=== PATIENT | male | born 1990 | race Caucasian/White ===

== ENCOUNTER 2017-08-25 18:02 | Observation (INO) | payer SELFPAY ==
[~2017-08-25] VITALS: Ht 172.7 cm; Wt 70.8 kg
[2017-08-25] MEDS ORDERED: fentaNYL INJECTION 100 MCG/2 ML AMP IVP STA ×3 (18:12→19:34)
[2017-08-25] MEDS ORDERED: TETANUS,DIPTH,PERTUSS P/F (BOOSTRIX) 0.5 ML VIAL IM STA (18:12)
[2017-08-25] MEDS ORDERED: NS IV 1000 ML 1,000 ML IV ONE (18:12)
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
[2017-08-25] MEDS ORDERED: IOHEXOL 350 MG/ML 100 ML (OMNIPAQUE 350) VIAL IV ONE (19:15)
[2017-08-25] MEDS ORDERED: NS 100 ML (IVPB) BAG IV ONE (19:15)
[2017-08-25 19:37] LABS: BASOPHILS # (AUTO) 0.1 10^3/uL (0.0-0.1); BASOPHILS % (AUTO) 1 % (0-10); EOSINOPHILS # (AUTO) 0.4 10^3/uL (0.0-0.3); EOSINOPHILS % (AUTO) 4 % (0-10); LYMPHOCYTES # (AUTO) 5.2 X 10^3 (1.0-4.0); LYMPHOCYTES % (AUTO) 58 % (12-44); MEAN CORPUSCULAR HEMOGLOBIN 29 PG (25-34); MEAN CORPUSCULAR HGB CONC 35 G/DL (32-36); MEAN CORPUSCULAR VOLUME 83 FL (80-99); MEAN PLATELET VOLUME 11.1 FL (7.4-10.4); MONOCYTES # (AUTO) 0.8 X 10^3 (0.0-1.0); MONOCYTES % (AUTO) 9 % (0-12); NEUTROPHILS # (AUTO) 2.6 X 10^3 (1.8-7.8); NEUTROPHILS % (AUTO) 29 % (42-75); PLATELET COUNT 201 10^3/uL (130-400); RED BLOOD COUNT 4.75 10^6/uL (4.35-5.85); RED CELL DISTRIBUTION WIDTH 12.6 % (10.0-14.5)
[2017-08-25 19:40] LABS: PROTHROMBIN TIME PATIENT 13.6 SEC (12.2-14.7)
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
[2017-08-25 20:01] LABS: ALANINE AMINOTRANSFERASE 38 U/L (0-55); ALBUMIN 3.9 GM/DL (3.2-4.5); ANION GAP 12 MMOL/L (5-14); ASPARTATE AMINO TRANSFERASE 25 U/L (5-34); BILIRUBIN,TOTAL 0.4 MG/DL (0.1-1.0); BLOOD UREA NITROGEN 13 MG/DL (7-18); BUN/CREATININE RATIO 14; CALCIUM 8.3 MG/DL (8.5-10.1); CARBON DIOXIDE 22 MMOL/L (21-32); CHLORIDE 106 MMOL/L (98-107); CREATININE SERUM 0.93 MG/DL (0.60-1.30); GFR ESTIMATED > 60; GLUCOSE 104 MG/DL (70-105); SODIUM 140 MMOL/L (135-145); TOTAL PROTEIN 6.2 GM/DL (6.4-8.2)
[2017-08-25 20:20] VITALS: BP 133/77
[2017-08-25] MEDS ORDERED: fentaNYL INJECTION 100 MCG/2 ML AMP IV PRN (21:15)
[2017-08-25] MEDS ORDERED: CATHETER FLUSH 10 ML SYR IV PRN (21:15)
[2017-08-25] MEDS: CATHETER FLUSH 10 ML SYR IV SCH (21:25)
[2017-08-25] MEDS: LACTATED RINGERS 1,000 ML IV SCH (21:25)
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
[2017-08-25 22:22] VITALS: BP 128/67
[2017-08-25] MEDS: KETOROLAC 30 MG/ML VIAL IVP PRN (22:28)
[2017-08-26] VITALS: BP 114/63
[2017-08-26 02:00] VITALS: BP 124/68
[2017-08-26 04:08] VITALS: BP 117/66
[2017-08-26 05:55] LABS: BASOPHILS % (AUTO) 0 % (0-10); EOSINOPHILS # (AUTO) 0.3 10^3/uL (0.0-0.3); EOSINOPHILS % (AUTO) 3 % (0-10); LYMPHOCYTES # (AUTO) 2.2 X 10^3 (1.0-4.0); LYMPHOCYTES % (AUTO) 30 % (12-44); MEAN CORPUSCULAR HEMOGLOBIN 30 PG (25-34); MEAN CORPUSCULAR HGB CONC 35 G/DL (32-36); MEAN CORPUSCULAR VOLUME 84 FL (80-99); MEAN PLATELET VOLUME 10.5 FL (7.4-10.4); MONOCYTES # (AUTO) 0.9 X 10^3 (0.0-1.0); MONOCYTES % (AUTO) 12 % (0-12); NEUTROPHILS % (AUTO) 55 % (42-75); PLATELET COUNT 154 10^3/uL (130-400); RED BLOOD COUNT 4.29 10^6/uL (4.35-5.85); RED CELL DISTRIBUTION WIDTH 12.4 % (10.0-14.5); WHITE BLOOD COUNT 7.4 10^3/uL (4.3-11.0)
[2017-08-26] MEDS: KETOROLAC 30 MG/ML VIAL IVP PRN ×2 (05:59→12:38)
[2017-08-26] MEDS: CATHETER FLUSH 10 ML SYR IV SCH ×2 (06:03→14:45)
[2017-08-26 06:13] LABS: ALANINE AMINOTRANSFERASE 39 U/L (0-55); ALBUMIN 3.6 GM/DL (3.2-4.5); ANION GAP 7 MMOL/L (5-14); ASPARTATE AMINO TRANSFERASE 31 U/L (5-34); BLOOD UREA NITROGEN 9 MG/DL (7-18); BUN/CREATININE RATIO 11; CALCIUM 8.8 MG/DL (8.5-10.1); CARBON DIOXIDE 26 MMOL/L (21-32); CHLORIDE 106 MMOL/L (98-107); CREATININE SERUM 0.82 MG/DL (0.60-1.30); GFR ESTIMATED > 60; GLUCOSE 93 MG/DL (70-105); POTASSIUM 4.1 MMOL/L (3.6-5.0); SODIUM 139 MMOL/L (135-145); TOTAL PROTEIN 5.9 GM/DL (6.4-8.2)
[2017-08-26 06:22] VITALS: BP 122/65
[2017-08-26] MEDS: LACTATED RINGERS 1,000 ML IV SCH (07:28)
[2017-08-26 08:00] VITALS: BP 128/76
[2017-08-26] MEDS ORDERED: DOCU-143 PO (08:25)
[2017-08-26] MEDS ORDERED: HYDR-3812 PO (08:25)
--- NOTE | 2017-08-26 08:29 | Discharge Inst-Simple/Standard ---
Discharge Inst-Standard Discharge Medications New, Converted or Re-Newed RX: RX on Chart Patient Instructions/Follow Up Plan of Care/Instructions/FU: Follow up with Dr. Thomas in 2 weeks. Follow up with Dr. Voss if needed. Right lower extremity weight bearing as tolerated. Wear knee imobilizer. If any change in condition be re-evaluated. Activity as Tolerated: No (Weight bearing as tolerated right lower extremity.) Discharge Diet: Regular Diet Other Inst to Patient \ Symptoms to Report: Appetite Changes, Extremity Discoloration, Numbness/Tingling, Swelling Increased , Bleeding Excessive, Eyesight Changes, Pain Increased, Urine Color Change, Constipation(Persistent), Fever over 101 degree F, Pain/Pressure in chest, Urinating Difficulty, Cough Up/Vomit Blood, Heart Beat Irreg/Pounding, Pain/ Pressure in jaw, Vaginal Bleeding Increase, Cramps in feet or legs, Lightheadedness, Pain/Pressure in shoulder, Diarrhea(Persistent), Memory Changes Suddenly, Questions/Concerns, Weight gain consecutive days, Dizziness/ Fainting, Nausea/Vomiting, Shortness of Breath, Weight gain over 2 pounds If questions or concerns contact your physician Or seek help at emergency department. SYDNI VOSS DO Aug 26, 2017 08:29
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
[2017-08-26 12:00] VITALS: BP 118/73
[2017-08-26] MEDS ORDERED: HYDROcodone/APAP 5 MG/325 MG (LORTAB) TAB PO PRN (12:30)
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
== END 2017-08-26 12:10 | disposition home or self-care (01) ==
LOC: ER 18:08 → 4TH 19:57 → UNDOADMOB 19:57 → 4TH 20:20 → UNDODISOB 08-26 12:10
PROVIDERS: ADMIT Surgery; ATTEND Surgery
DX: S82.831A Other fracture of upper and lower end of right fibula, initial encounter for closed fracture (principal); S82.191A Other fracture of upper end of right tibia, initial encounter for closed fracture; K21.9 Gastro-esophageal reflux disease without esophagitis; V03.10XA Pedestrian on foot injured in collision with car, pick-up truck or van in traffic accident, initial encounter; Y92.410 Unspecified street and highway as the place of occurrence of the external cause; Z23 Encounter for immunization
CPT/HCPCS: 36415; 71010; 72170; 73552; 73590; 73630; 73701; 80053; 85025; 85610; 85730; 90471; 90715; 93041; 96361; 96374; 96376; G0378

== ENCOUNTER → 2018-01-19 | Outpatient (CLI) | payer OTHER ==
[~2018-01-19] MED LIST: ACHD5005 PO; DOCU-143 PO
--- NOTE | 2018-01-19 12:50 | Diagnostic Imaging Report ---
PROCEDURE: MRI right joint lower extremity without contrast. TECHNIQUE: Multiplanar, multisequence non contrast-enhanced MRI of the right lower extremity was accomplished. INDICATION: Injury, leg pain. FINDINGS: There are no previous MRI examinations available for comparison. However the CT right lower extremity exam of 08/25/2017 did show a markedly comminuted, mildly displaced fracture of the right fibular head with nondisplaced fractures of the lateral aspect of the proximal right tibial plateau. On this exam, the fractures involving the fibular head seen previously are again evident. There is still a small amount of soft tissue edema and bone edema present in this area. Furthermore, the attachment of the fibular collateral ligament to the fibular head is somewhat indistinct and I suspect it is partially torn. The attachment of the biceps femoris tendon to the fibular head is also somewhat indistinct and may partially torn as well. For the most part, both the fibular collateral ligament and the biceps femoris tendon seem to be intact. There is no sign of an injury to the lateral meniscus. The medial meniscus is also intact. The anterior and posterior cruciate ligaments, the quadriceps, infrapatellar tendons, and the medial collateral ligaments show no sign of a tear. There does appear to be mild soft tissue edema about the MCL, however. There is no abnormal signal arising from the osseous structures to indicate bone edema or fracture other than the injury to the fibular head. There is no sign of a joint effusion either. IMPRESSION: 1. The comminuted, slightly displaced fracture of the fibular head seen previously is again evident. The fracture does appear to have partially healed. There is no acute or subacute bony abnormality noted otherwise. 2. The indistinct appearance of the attachments of the fibular collateral ligament and the biceps femoris tendon to the fibular head suggests that they are partially torn. For the most part, however these ligaments seem to be intact. 3. The other major ligaments and tendons are unremarkable. There is no sign of a tear either meniscus. Dictated by: Dictated on workstation # [id number]
== END ==
LOC: RAD 10:43
PROVIDERS: ATTEND Orthopaedic Surgery
DX: S82.491A Other fracture of shaft of right fibula, initial encounter for closed fracture (principal)
CPT/HCPCS: 73721

== ENCOUNTER 2019-05-04 05:35 | Outpatient (CLI) | payer OTHER ==
[~2019-05-04] VITALS: Ht 172.7 cm; Wt 77.1 kg
== END 2019-05-04 14:02 ==
LOC: PREOP 05:35
PROVIDERS: ATTEND Surgery
DX: Z01.818 Encounter for other preprocedural examination (principal); K21.9 Gastro-esophageal reflux disease without esophagitis; R14.0 Abdominal distension (gaseous)

== ENCOUNTER 2019-05-10 10:26 | Day surgery (SDC) | payer OTHER ==
[~2019-05-10] VITALS: Ht 172.7 cm; Wt 77.1 kg
--- NOTE | 2019-05-10 10:35 | Progress Note-Pre Operative ---
Pre-Operative Progress Note H&P Reviewed The H&P was reviewed, patient examined and no changes noted. Date Seen by Provider: May 10, 2019 Time Seen by Provider: 10:35 Date H&P Reviewed: May 10, 2019 Time H&P Reviewed: 10:35 Pre-Operative Diagnosis: gerd SYDNI GUERRERO DO May 10, 2019 10:35
[2019-05-10 10:40] VITALS: BP 123/76
[2019-05-10] MEDS ORDERED: LACTATED RINGERS 1,000 ML IV ONE (10:41)
[2019-05-10] MEDS ORDERED: HURRICAINE EXT TUBE (BENZOCAINE) XX PRN (10:45)
[2019-05-10] MEDS ORDERED: LACTATED RINGERS 1,000 ML IV PRN (10:45)
[2019-05-10] MEDS ORDERED: proPOfol 200 MG/20 ML (DIPRIVAN) VIAL IV ONE (11:21)
[2019-05-10] MEDS ORDERED: MIDAZOLAM 2 MG/2 ML (VERSED) VIAL ONE (11:21)
[2019-05-10 11:50] VITALS: BP 98/55
[2019-05-10] MEDS ORDERED: PANT40TA2 PO (11:51)
[2019-05-10] MEDS ORDERED: HURRICAINE EXT TUBE (BENZOCAINE) ONE (11:52)
--- NOTE | 2019-05-10 11:52 | Discharge Inst-Simple/Standard ---
Discharge Inst-Standard Discharge Medications New, Converted or Re-Newed RX: Transmitted to Pharmacy Patient Instructions/Follow Up Plan of Care/Instructions/FU: 3 weeks Shanika Activity as Tolerated: Yes Discharge Diet: Regular Diet SYDNI GUERRERO DO May 10, 2019 11:52
--- NOTE | 2019-05-10 11:54 | Progress Note-Post Operative ---
Post-Operative Progess Note Surgeon (s)/Statistician Theoretical (s) Surgeon SYDNI GUERRERO DO Statistician Theoretical: na Pre-Operative Diagnosis gerd Post-Operative Diagnosis hiatal hernia reflux esophagitis Procedure & Operative Findings Date of Procedure 05/10/19 Procedure Performed/Findings egd c biopsies Anesthesia Type per custodian athletic equipment Estimated Blood Loss Estimated blood loss (mL): none Specimens/Packing Specimens Removed antrum, ge junction SYDNI GUERRERO DO May 10, 2019 11:54
[2019-05-10 11:55] VITALS: BP 101/58
[2019-05-10 12:00] VITALS: BP 111/59
[2019-05-10 12:30] VITALS: BP 109/73
[2019-05-10 12:45] VITALS: BP 109/73
--- NOTE | 2019-05-10 14:10 | OPERATIVE REPORT ---
DATE OF SERVICE: 05/10/2019 PREOPERATIVE DIAGNOSIS: Gastroesophageal reflux disease. POSTOPERATIVE DIAGNOSIS: Hiatal hernia and reflux esophagitis. PROCEDURE: EGD with biopsy. ANESTHESIA: Per HYDROELECTRIC SYSTEMS TECHNICIAN. SURGEON: Sydni Voss DO ESTIMATED BLOOD LOSS: None. SPECIMENS: Antrum and GE junction. INDICATIONS: The patient is a 29-year-old male with GERD. He was sent for further evaluation with EGD. He understands the risks and benefits of procedure and wished to proceed with procedure. Consent was signed in the chart. DESCRIPTION OF PROCEDURE: The patient was taken to the endoscopy suite, placed in left lateral recumbent position. Timeout was performed. Scope was inserted in the mouth, down the esophagus, stomach and into the duodenum without difficulty. There were no polyps, masses or ulcerations within the duodenum. Scope was slowly retracted back into the stomach where it was further insufflated. No polyps, masses or ulcerations. Biopsy of the antrum was obtained. Scope was retroflexed noting a small hiatal hernia. No other pathology noted. Scope was returned to its normal position, slowly withdrawn to the distal esophagus. Some evidence of some slight reflux esophagitis. Biopsy of the GE junction was obtained. There were no polyps, masses or ulcerations. Scope was then slowly retracted back until completely removed, noting no other pathology. The patient tolerated the procedure well without any complications, taken to recovery room in stable condition. RECOMMENDATIONS: The patient will be started on Protonix 40 mg daily. We will follow up in the office in two to three weeks to see how he is doing at that time. I would also if no improvement, consider working up the gallbladder. Job ID: [id number] DocumentID: [id number] Dictated Date: 05/10/2019 11:54:53 Welding Machine Operator Plasma Arc Date: 05/10/2019 14:09:31 Dictated By: SYDNI VOSS DO
--- NOTE | 2019-05-10 15:36 | Anesthesia-General Post-Op ---
MAC Patient Condition Mental Status/LOC: Same as Preop Cardiovascular: Satisfactory Nausea/Vomiting: Absent Respiratory: Satisfactory Pain: Controlled Complications: Absent Post Op Complications Complications None Follow Up Care/Instructions Patient Instructions None needed. Anesthesiology Discharge Order Discharge Order Patient was seen after the procedure and he was doing well, no complaints, stable vital signs, no apparent adverse anesthesia problems. CYNTHIA HAWKINS DO May 10, 2019 15:36
== END 2019-05-10 12:57 | disposition home or self-care (01) ==
LOC: ENDO 10:26
PROVIDERS: ATTEND Surgery
DX: K21.0 Gastro-esophageal reflux disease with esophagitis (principal); K44.9 Diaphragmatic hernia without obstruction or gangrene; Z83.49 Family history of other endocrine, nutritional and metabolic diseases; Z82.49 Family history of ischemic heart disease and other diseases of the circulatory system; Z79.899 Other long term (current) drug therapy
CPT/HCPCS: 88305

== ENCOUNTER → 2019-06-22 | Outpatient (CLI) | payer OTHER ==
[~2019-06-22] MED LIST changes: +PANT40TA2 PO
== END | disposition home or self-care (01) ==
LOC: PREOP 05:39
PROVIDERS: ATTEND Surgery
DX: Z01.818 Encounter for other preprocedural examination (principal)

== ENCOUNTER 2019-07-15 12:50 | Outpatient (CLI) | payer OTHER ==
[~2019-07-15] VITALS: Ht 172 cm; Wt 77.2 kg
[2019-07-21] MEDS ORDERED: DOCU-143 PO (13:37)
[2019-07-21] MEDS ORDERED: ACHD5005 PO (13:37)
== END 2019-07-15 13:07 | disposition home or self-care (01) ==
LOC: PREOP 12:50
PROVIDERS: ATTEND Surgery
DX: Z01.818 Encounter for other preprocedural examination (principal)

== ENCOUNTER → 2021-08-15 | Outpatient (CLI) | payer OTHER ==
[~2021-08-15] MED LIST changes: +HOLD METFORMIN - RECEIVED CONTRAST 20 ML VIAL IV SCH; +IOHEXOL 350 MG/ML 100 ML (OMNIPAQUE 350) VIAL IV ONE; +NS 100 ML (IVPB) BAG IV ONE
--- NOTE | 2021-08-15 17:15 | Diagnostic Imaging Report ---
PROCEDURE: CT abdomen and pelvis with contrast, rule out appendicitis. TECHNIQUE: Multiple contiguous axial images were obtained through the abdomen and pelvis after the administration of intravenous contrast. All CT scans use one or more of the following dose optimizing techniques: Automated exposure control, MA and/or KvP adjustment based on patient size and exam type or iterative reconstruction. INDICATION: Right lower quadrant abdominal pain. COMPARISON: None. FINDINGS: Lung bases are clear. The heart is normal in size. There is no pericardial effusion. The liver demonstrates no focal lesions. The spleen appears normal. The pancreas is normal. Cholecystectomy clips are noted. The adrenal glands appear normal. There are simple-appearing cysts in the kidneys bilaterally. There is an extrarenal pelvis in the kidneys bilaterally. The appendix is mildly prominent in size, measuring 7 mm. No significant periappendiceal edema is seen. There are no adjacent fluid collections. There are a few prominent right lower quadrant lymph nodes. There is wall thickening of the descending colon, with surrounding pericolonic edema. This is thought to represent diverticulitis in the descending colon; however, there is a longer segment of wall thickening seen in the transverse and sigmoid colon, which may represent inflammation versus nondistention. No free air or fluid collections are seen. No free fluid is seen. No acute osseous abnormality is seen. IMPRESSION: 1. Diverticulitis of the descending colon with nondistention elsewhere in the colon, versus a more diffuse colitis, most pronounced in the descending colon. 2. The appendix is mildly prominent in size, but there is no surrounding edema, and appendicitis is considered unlikely. 3. Mildly prominent right lower quadrant lymph nodes may be reactive versus a mesenteric adenitis. Dictated by: Dictated on workstation # [id number]
== END ==
LOC: RAD 16:18
PROVIDERS: ATTEND Nurse Practitioner Family
DX: K57.32 Diverticulitis of large intestine without perforation or abscess without bleeding (principal)
CPT/HCPCS: 74177

== ENCOUNTER 2021-09-20 11:04 | Day surgery (SDC) | payer OTHER ==
[~2021-09-20] VITALS: Ht 172.7 cm; Wt 82.1 kg
[~2021-09-20 11:04] MED LIST changes: -HOLD METFORMIN - RECEIVED CONTRAST 20 ML VIAL IV SCH; -IOHEXOL 350 MG/ML 100 ML (OMNIPAQUE 350) VIAL IV ONE; -NS 100 ML (IVPB) BAG IV ONE
--- OUTSIDE RECORDS SUMMARY | 2021-09-20 11:07 | XMS REPORT | CCD ---
Author Author Blas Jackson Organization Denise Rose MD, JESSICA Address [address] [place] [address] Phone Care Team Providers Care Snaker Name Role Phone Denise Rose PP Unavailable CCM Unavailable Summary Purpose Interface Exchange Insurance Providers Payer name Policy type / Coverage type Covered libertarian ID Effective Begin Date Effective End Date Page Hospital [id number] Unknown Family history Runs in the family Diagnosis Age At Onset No Family Disease Entered N/A Social History Social History Element Codes Description Effective Dates Marital status Unknown Single Engaged to [employer] 11/30/2017 Number of children Unknown 2 5 year old girl and 3 year old boy 11/30/2017 Employment Unknown Currently employed [facility] 11/30/[address]: 704794645 Never smoker 11/30/[address]: 885774896 Never drinks alcohol 2017 Allergies, Adverse Reactions, Alerts Substance Reaction Codes Entered Date Inactivated Date Status * NO KNOWN DRUG ALLERGIES Unknown 11/30/2017 No Inactiv e Date Active * NO KNOWN FOOD ALLERGIES Unknown 11/30/2017 No Inactiv e Date Active * NO KNOWN ENVIRONMENTAL ALLERGIES Unknown 11/30/2017 N o Inactive Date Active Problems Condition Codes Effective Dates Condition Status Diarrhea ICD-10: R19.7 ICD-9: 787.91 08/13/2021 Active RLQ abdominal pain ICD-10: R10.31 ICD-9: 789.03 08/13/2021 Active VACCIN FOR INFLUENZA ICD-10: Z23 ICD-9: V04.81 07/07/2019 Active GERD (gastroesophageal reflux disease) ICD-10: K21.9 ICD-9: 530.81 11/30/2017 Active Left wrist pain ICD-10: M25.532 ICD-9: 719.43 05/17/2020 Active Pain in right knee ICD-10: M25.561 ICD-9: 719.46 11/30/2017 Active Other lesions of oral mucosa ICD-10: K13.79 ICD-9: 528.9 06/17/2018 Active Medications Medication Codes Instructions Start Date Stop Date Status Fill Instructions Cipro 500 mg tablet RxNorm: 261068 Take 1 Tablet(s) Oral two ti mes a day 08/15/2021 08/15/2021 Inactive metronidazole 500 mg tablet RxNorm: 396656 Take 1 Table t(s) Oral three times a day 08/15/2021 08/24/2021 Active metronidazole 500 mg tablet RxNorm: 505400 Take 1 Table t(s) Oral three times a day 08/15/2021 08/15/2021 Inactive metronidazole 500 mg tablet RxNorm: 698899 Take 1 Table t(s) Oral three times a day 08/15/2021 08/24/2021 Active Cipro 500 mg tablet RxNorm: 384051 Take 1 Tablet(s) Oral two ti mes a day 08/15/2021 08/24/2021 Active Protonix 40 mg tablet,delayed release RxNorm: 366682 1 Tablet(s ) Oral every day 02/01/2021 03/02/2021 Inactive Dexilant 60 mg capsule, delayed release RxNorm: 000568 1 Capsule(s) Oral every day 02/01/2021 02/01/2021 Inactive prednisone 20 mg tablet RxNorm: 249156 1 Tablet(s) Oral two celestino es a day 02/01/2021 02/06/2021 Inactive Protonix 40 mg tablet,delayed release RxNorm: 463675 1 Tablet(s ) Oral every day 02/01/2021 01/31/2021 Inactive naproxen 500 mg tablet RxNorm: 786970 1 Tablet(s) Oral two time s a day 05/17/2020 06/06/2020 Inactive Dexilant 60 mg capsule, delayed release RxNorm: 771031 1 Capsul e(s) PO daily 06/17/2018 04/03/2019 Inactive valacyclovir 1 gram tablet RxNorm: 973667 1 Tablet(s) PO TID 201706/23/2018 Inactive prednisone 20 mg tablet RxNorm: 856374 2 Tablet(s) PO daily 018 06/19/2018 Inactive Carafate 1 gram tablet RxNorm: 011830 1 Tablet(s) PO QID 11/30/2017 0 12/27/2017 Inactive dissolve in water and drink as slurry Men's Multivitamin oral RxNorm: 64528 oral 11/30/2017 A ctive Medication Administered No Medication Administered data Immunizations Vaccine Codes Date Status Influenza CVX: 150 06/26/2021 Complete Influenza CVX: 150 07/20/2020 Complete Influenza CVX: 150 07/07/2019 Complete Influenza CVX: 135 08/27/2018 Tetanus, Diptheria, Pertussis CVX: 08/14/2017 Tetanus/Diptheria CVX: 08/14/2017 Influenza CVX: 135 06/14/2017 Results No Results data Procedures Procedure Codes Date IIV4 VACC NO PRSV 0.5 ML IM CPT-4: 99685 06/26/2021 IMMUNIZATION ADMIN CPT-4: 26226 06/26/2021 IIV4 VACC NO PRSV 0.5 ML IM CPT-4: 35819 06/26/2021 IIV4 VACC NO PRSV 0.5 ML IM CPT-4: 50422 07/20/2020 IMMUNIZATION ADMIN CPT-4: 49392 07/20/2020 IIV4 VACC NO PRSV 0.5 ML IM CPT-4: 99631 07/20/2020 IIV4 VACC NO PRSV 0.5 ML IM CPT-4: 69438 07/07/2019 IMMUNIZATION ADMIN CPT-4: 85553 07/07/2019 IIV4 VACC NO PRSV 0.5 ML IM CPT-4: 09203 07/07/2019 Vital Signs Date Vital 08/13/2021 Blood Pressure 1: 124/86 Code: 8480-6 BMI: 27.2 Code: 09243-4 Heart Rate 1: 68 bpm Height: 5'8" Code: 8302-2 SpO2: 99% Temperature: 3 5.9 (C) / 96.6 (F) Weight: 179 lbs Code: 75146-6 02/01/2021 Blood Pressure 1: 130/84 Code: 8480-6 Heart Rate 1: 60 bpm Height: Code: 8302-2 SpO2: 98% Weight: Code: 41800-4 05/17/2020 Blood Pressure 1: 122/80 Code: 8480-6 Heart Rate 1: 76 bpm Height: 5'8" Code: 8302-2 SpO2: 97% Temperature: 36.8 (C) / 98.2 (F) Weight: Code: 72076-4 04/04/2019 Blood Pressure 1: 132/70 Code: 8480-6 BMI: 25.8 Code: 74555-7 Heart Rate 1: 66 bpm Height: 5'8" Code: 8302-2 SpO2: 98% Weight: 170 lb s Code: 02969-6 06/17/2018 Blood Pressure 1: 130/76 Code: 8480-6 BMI: 26.6 Code: 18866-4 Heart Rate 1: 71 bpm Height: 5'8" Code: 8302-2 SpO2: 99% Weight: 175 lb s Code: 80522-1 11/30/2017 Blood Pressure 1: 118/68 Code: 8480-6 BMI: 26.0 Code: 44769-0 Heart Rate 1: 80 bpm Height: 5'8" Code: 8302-2 SpO2: 98% Weight: 171 lb s Code: 26499-3 Functional Status No Functional Status data Reason For Visit Reason For Visit Effective Dates Notes abdominal pain 08/13/2021 vaccination against influenza 06/26/2021 wrist pain 02/01/2021 vaccination against influenza 07/20/2020 wrist pain 05/17/2020 vaccination against influenza 07/07/2019 lower leg pain 04/04/2019 sore throat 06/17/2018 dyspepsia 11/30/2017 Encounters Encounter Performer Location Codes Date ( 81507 EST. PATIENT, LEVEL III Diagnosis: RLQ abdominal pain[ICD10: R10.31] Diagnosis: Diarrhea[ICD10: R19.7] Buffy Rose MD, [facility] CPT -4: 30591 08/13/2021 77528 13588 EST. PATIENT, LEVEL III Diagnosis: GERD (gastroesophageal reflux disease)[ICD10: K21.9] Diagnosis: Left wrist pain[ICD10: M25.532] Buffy ward MD, [facility] CPT-4: 23603 02/01/2021 73272 EST. PATIENT, LEVEL III Diagnosis: Left wrist pain[ICD10: M25.532] Buffy ward MD, [facility] CPT-4: 95365 05/17/2020 ([id number]) 59676 EST. PATIENT, LEVEL III Diagnosis: Gastro-esophageal reflux disease without esophagitis[ICD10: K21.9] Diagnosis: Pain in right knee[ICD10: M25.561] [facility] CPT-4: 17754 04/04/2019 43764 EST. PATIENT, LEVEL IV Diagnosis: Gastro-esophageal reflux disease without esophagitis[ICD10: K21.9] Diagnosis: Other lesions of oral mucosa[ICD10: K13.79] [facility] CPT-4: 30518 06/17/2018 OFFICE VISIT, NEW - LEVEL 3 Diagnosis: Pain in right knee[ICD10: M25.561] Diagnosis: Gastro-esophageal reflux disease without esophagitis[ICD10: K21.9] [facility] CPT-4: 86902 11/30/2017 Plan of Care Planned Activity Notes Codes Status Date Visit Plan: RLQ pain- diarrhea- recommen d CT scan to r/o appendicitis - request submitted to [place] [facility] for prior approval - instructed patient to go to ER for worsening pain -patient verbalized understanding of plan. 08/13/2021 Appointment: Buffy Jackson WPtel: [phone] (15 min) Moderate 08/13/2021 Patient Education: Patient Medication Summary Completed 08/13/2021 Appointment: Injection 06/26/2021 Patient Education: Patient Medication Summary Completed 06/26/2021 Visit Plan: Esophageal Reflux - the gosia ent has been counseled against excessive intake of caffeine, spicy foods, peppermint, and cinnamon - all of which can exacerbate esophageal reflux. The patient is to take medications as prescribed and call the office if the symptoms are not improving. Left wrist pain -rx sent electronically and instructed on use- refer to Dr Chaves for evaluation - continue with wrist brace 02/01/2021 Appointment: Buffy Jackson WPtel: [phone] (15 min) Moderate 02/01/2021 Patient Education: Patient Medication Summary Completed 02/01/2021 Appointment: Buffy Jackson WPtel: [phone] (15 min) Moderate 01/31/2021 Appointment: Injection 07/20/2020 Patient Education: Patient Medication Summary Completed 07/20/2020 Visit Plan: Left wrist pain -recommend r est, ice and anti inflammatories recommend wrist brace to wear at least at night while sleeping - call if pain does not resolve and we will refer to hand specialist - patient verbalized understanding of plan. 05/17/2020 Appointment: Buffy Jackson WPtel: [phone] (30 min) Complex 05/17/2020 Patient Education: Patient Medication Summary Completed 05/17/2020 Appointment: Injection 07/07/2019 Patient Education: Patient Medication Summary Completed 07/07/2019 Referral: Panfilo Guerrero HPtel:[phone] Referral Completed 2019 Visit Plan: Esophageal Reflux - the gosia ent has been counseled against excessive intake of caffeine, spicy foods, peppermint, and cinnamon - all of which can exacerbate esophageal reflux. The patient is to take medications as prescribed and call the office if the symptoms are not improving. Right knee pain -chronic -patient is cleared to walk but needs to continue to avoid running- paperwork completed for clearance. 04/04/2019 Appointment: Buffy Jackson WPtel: [phone] [place] (15 min) Moderate 04/04/2019 Patient Education: Patient Medication Summary Completed 04/04/2019 Care Plan: Referral Order SNOMED-CT : 30 [id number] Pending 04/04/2019 Appointment: Heena Bucio WPtel: [facility] [place] (15 min) Moderate 06/17/2018 Patient Education: Patient Medication Summary Completed 06/17/2018 Care Plan: Comp Metabolic Pending Care Plan: Cbc With Differential Pending 06/17/2018 Care Plan: Tsh Pending 06/17/2018 Visit Plan: Right knee pain-trauma to ri ght leg in August -lower leg is healing well but patient is now having right knee pain- wants a second Ortho evaluation -will refer to Dr Newsome/Alexander Santiago for evaluation Esophageal Reflux - the patient has been counseled against excessive intake of caffeine, spicy foods, peppermint, and cinnamon - all of which can exacerbate esophageal reflux. The patient is to take medications as prescribed and call the office if the symptoms are not improving. 11/30/2017 Appointment: Buffy Jackson WPtel: [phone] [phone] New Patient 11/30/2017 Patient Education: Patient Medication Summary Completed 11/30/2017 Care Plan: Referral Order SNOMED-CT : 30 [id number] Pending 11/30/2017 Referral: Panfilo Guerrero HPtel:[phone] [facility] [place] Referral Appointment Requested Referral: Zac Vee [facility] [place] Referral Appointment Requested Referral: Alli Newsome Referral Appointment Re quested Instructions Comment CT abd/pelvis - [facility] has been Submitted successfully with AuthID : [id number] . RLQ pain- diarrhea- recommend CT scan to r/o appendicitis - request submitted to [place] [facility] for prior approval - instructed patient to go to ER for worsening pain -patient verbalized understanding of plan. . Esophageal Reflux - the patient has be en counseled against excessive intake of caffeine, spicy foods, peppermint, and cinnamon - all of which can exacerbate esophageal reflux. The patient is to take medications as prescribed and call the office if the symptoms are not improving. Left wrist pain -rx sent electronically and instructed on use- refer to Dr Chaves for evaluation - continue with wrist brace . Left wrist pain -recommend rest, ice a nd anti inflammatories recommend wrist brace to wear at least at night while sleeping - call if pain does not resolve and we will refer to hand specialist - patient verbalized understanding of plan. APPOINTMENTWITH DR GUERRERO FOR EGD . Esophageal Reflux - the patient has be en counseled against excessive intake of caffeine, spicy foods, peppermint, and cinnamon - all of which can exacerbate esophageal reflux. The patient is to take medications as prescribed and call the office if the symptoms are not improving. Right knee pain -chronic -patient is cleared to walk but needs to continue to avoid running- paperwork completed for clearance. . Right knee pain-trauma to right leg in August -lower leg is healing well but patient is now having right knee pain- wants a second Ortho evaluation -will refer to Dr Newsome/Alexander Santiago for evaluation Esophageal Reflux - the patient has been counseled against excessive intake of caffeine, spicy foods, peppermint, and cinnamon - all of which can exacerbate esophageal reflux. The patient is to take medications as prescribed and call the office if the symptoms are not improving. Medical Equipment No Medical Equipment data Health Concerns Section Health Concerns data not found Goals Section Goals data not found Interventions Section Interventions data not found Health Status Evaluations/Outcomes Section Health Status Evaluations/Outcomes data not found Advance Directives No Advance Directive data
--- OUTSIDE RECORDS SUMMARY | 2021-09-20 11:07 | XMS REPORT | CCD ---
Author Author Blas Jackson Organization Denise Rose MD, JESSICA Address [address] [place] [address] Phone Care Team Providers Care Stonemason Supervisor Name Role Phone Denise Rose PP Unavailable CCM Unavailable Summary Purpose Interface Exchange Insurance Providers Payer name Policy type / Coverage type Covered democrat ID Effective Begin Date Effective End Date [facility] [id number] Unknown Family history Runs in the family Diagnosis Age At Onset No Family Disease Entered N/A Social History Social History Element Codes Description Effective Dates Marital status Unknown Single Engaged to [employer] 11/30/2017 Number of children Unknown 2 5 year old girl and 3 year old boy 11/30/2017 Employment Unknown Currently employed [employer] 11/30/[address]: 761589173 Never smoker 11/30/[address]: 631318220 Never drinks alcohol 2017 Allergies, Adverse Reactions, [...] Fill Instructions Cipro 500 mg tablet RxNorm: 063438 Take 1 Tablet(s) Oral two ti mes a day 08/15/2021 08/15/2021 Inactive metronidazole 500 mg tablet RxNorm: 360307 Take 1 Table t(s) Oral three times a day 08/15/2021 08/24/2021 Active Cipro 500 mg tablet RxNorm: 847800 Take 1 Tablet(s) Oral two ti mes a day 08/15/2021 08/24/2021 Active Protonix 40 mg tablet,delayed release RxNorm: 603383 1 Tablet(s ) Oral every day 02/01/2021 03/02/2021 Inactive Dexilant 60 mg capsule, delayed release RxNorm: 973554 1 Capsule(s) Oral every day 02/01/2021 02/01/2021 Inactive prednisone 20 mg tablet RxNorm: 453323 1 Tablet(s) Oral two celestino es a day 02/01/2021 02/06/2021 Inactive Protonix 40 mg tablet,delayed release RxNorm: 797221 1 Tablet(s ) Oral every day 02/01/2021 01/31/2021 Inactive naproxen 500 mg tablet RxNorm: 026836 1 Tablet(s) Oral two time s a day 05/17/2020 06/06/2020 Inactive Dexilant 60 mg capsule, delayed release RxNorm: 419506 1 Capsul e(s) PO daily 06/17/2018 04/03/2019 Inactive valacyclovir 1 gram tablet RxNorm: 953864 1 Tablet(s) PO TID 201706/23/2018 Inactive prednisone 20 mg tablet RxNorm: 335954 2 Tablet(s) PO daily 018 06/19/2018 Inactive Carafate 1 gram tablet RxNorm: 228049 1 Tablet(s) PO QID 11/30/2017 0 12/27/2017 Inactive dissolve in water and drink as slurry Men's Multivitamin oral RxNorm: 59712 oral 11/30/2017 A ctive Medication Administered No Medication Administered data Immunizations Vaccine Codes Date Status Influenza CVX: 150 06/26/2021 Complete Influenza CVX: 150 07/20/2020 Complete Influenza CVX: 150 07/07/2019 Complete Influenza CVX: 135 08/27/2018 Tetanus, Diptheria, Pertussis CVX: 08/14/2017 Tetanus/Diptheria CVX: 08/14/2017 Influenza CVX: 135 06/14/2017 Results No Results data Procedures Procedure Codes Date IIV4 VACC NO PRSV 0.5 ML IM CPT-4: 29239 06/26/2021 IMMUNIZATION ADMIN CPT-4: 93420 06/26/2021 IIV4 VACC NO PRSV 0.5 ML IM CPT-4: 49390 06/26/2021 IIV4 VACC NO PRSV 0.5 ML IM CPT-4: 62998 07/20/2020 IMMUNIZATION ADMIN CPT-4: 37192 07/20/2020 IIV4 VACC NO PRSV 0.5 ML IM CPT-4: 36321 07/20/2020 IIV4 VACC NO PRSV 0.5 ML IM CPT-4: 05411 07/07/2019 IMMUNIZATION ADMIN CPT-4: 23938 07/07/2019 IIV4 VACC NO PRSV 0.5 ML IM CPT-4: 07417 07/07/2019 Vital Signs Date Vital 08/13/2021 Blood Pressure 1: 124/86 Code: 8480-6 BMI: 27.2 Code: 84785-6 Heart Rate 1: 68 bpm Height: 5'8" Code: 8302-2 SpO2: 99% Temperature: 3 5.9 (C) / 96.6 (F) Weight: 179 lbs Code: 49460-9 02/01/2021 Blood Pressure 1: 130/84 Code: 8480-6 Heart Rate 1: 60 bpm Height: Code: 8302-2 SpO2: 98% Weight: Code: 66743-6 05/17/2020 Blood Pressure 1: 122/80 Code: 8480-6 Heart Rate 1: 76 bpm Height: 5'8" Code: 8302-2 SpO2: 97% Temperature: 36.8 (C) / 98.2 (F) Weight: Code: 35170-9 04/04/2019 Blood Pressure 1: 132/70 Code: 8480-6 BMI: 25.8 Code: 63847-3 Heart Rate 1: 66 bpm Height: 5'8" Code: 8302-2 SpO2: 98% Weight: 170 lb s Code: 92108-5 06/17/2018 Blood Pressure 1: 130/76 Code: 8480-6 BMI: 26.6 Code: 32638-0 Heart Rate 1: 71 bpm Height: 5'8" Code: 8302-2 SpO2: 99% Weight: 175 lb s Code: 19606-2 11/30/2017 Blood Pressure 1: 118/68 Code: 8480-6 BMI: 26.0 Code: 86994-9 Heart Rate 1: 80 bpm Height: 5'8" Code: 8302-2 SpO2: 98% Weight: 171 lb s Code: 79428-7 Functional Status No Functional Status data Reason For Visit Reason For Visit Effective Dates Notes abdominal pain 08/13/2021 vaccination against influenza 06/26/2021 wrist pain 02/01/2021 vaccination against influenza 07/20/2020 wrist pain 05/17/2020 vaccination against influenza 07/07/2019 lower leg pain 04/04/2019 sore throat 06/17/2018 dyspepsia 11/30/2017 Encounters Encounter Performer Location Codes Date ([id number]) 91213 EST. PATIENT, LEVEL III Diagnosis: RLQ abdominal pain[ICD10: R10.31] Diagnosis: Diarrhea[ICD10: R19.7] Buffy Rose MD, [facility] CPT -4: 37888 08/13/2021 ([id number]) 65795 EST. PATIENT, LEVEL III Diagnosis: GERD (gastroesophageal reflux disease)[ICD10: K21.9] Diagnosis: Left wrist pain[ICD10: M25.532] Buffy ward MD, [facility] CPT-4: 49920 02/01/2021 61211 EST. PATIENT, LEVEL III Diagnosis: Left wrist pain[ICD10: M25.532] Buffy ward MD, [facility] CPT-4: 85134 05/17/2020 ([id number]) 47071 EST. PATIENT, LEVEL III Diagnosis: Gastro-esophageal reflux disease without esophagitis[ICD10: K21.9] Diagnosis: Pain in right knee[ICD10: M25.561] Buffy hernandez MD, [facility] CPT-4: 45717 04/04/2019 11048 EST. PATIENT, LEVEL IV Diagnosis: Gastro-esophageal reflux disease without esophagitis[ICD10: K21.9] Diagnosis: Other lesions of oral mucosa[ICD10: K13.79] [facility] CPT-4: 33259 06/17/2018 OFFICE VISIT, NEW - LEVEL 3 Diagnosis: Pain in right knee[ICD10: M25.561] Diagnosis: Gastro-esophageal reflux disease without esophagitis[ICD10: K21.9] [facility] CPT-4: 38945 11/30/2017 Plan of Care Planned Activity Notes Codes Status Date Visit Plan: RLQ pain- diarrhea- recommen d CT scan to r/o appendicitis - request submitted to [facility] for prior approval - instructed patient to go to ER for worsening pain -patient verbalized understanding of plan. 08/13/2021 Appointment: Buffy Jackson WPtel: [phone] (15 min) Moderate 08/13/2021 Patient Education: Patient [...] wrist brace 02/01/2021 Appointment: Buffy Jackson WPtel: [phone] [place] (15 min) Moderate 02/01/2021 Patient Education: Patient Medication Summary Completed 02/01/2021 Appointment: Buffy Jackson WPtel: [phone] [place] (15 min) Moderate 01/31/2021 Appointment: Injection 07/20/2020 Patient Education: Patient Medication Summary Completed 07/20/2020 Visit Plan: Left wrist pain -recommend r est, ice and anti inflammatories recommend wrist brace to wear at least at night while sleeping - call if pain does not resolve and we will refer to hand specialist - patient verbalized understanding of plan. 05/17/2020 Appointment: Buffy Jackson WPtel: [phone] [phone] (30 min) Complex 05/17/2020 Patient Education: Patient Medication Summary Completed 05/17/2020 Appointment: Injection 07/07/2019 Patient Education: Patient Medication Summary Completed 07/07/2019 Referral: Panfilo Guerrero HPtel:[phone] [facility] [place] Referral Completed 2019 Visit Plan: Esophageal Reflux [...] for clearance. 04/04/2019 Appointment: Buffy Jackson WPtel: [phone] [place] (15 min) Moderate 04/04/2019 Patient Education: Patient Medication Summary Completed 04/04/2019 Care Plan: Referral Order SNOMED-CT : 30 [id number] Pending 04/04/2019 Appointment: Heena Bucio WPtel: [facility] (15 min) Moderate 06/17/2018 Patient Education: Patient [...] the symptoms are not improving. 11/30/2017 App[facility]ment: [phone] New Patient 11/30/2017 Patient Education: Patient Medication Summary Completed 11/30/2017 Care Plan: Referral Order SNOMED-CT : 30 5394283 Pending 11/30/2017 Referral: Panfilo Guerrero HPtel:[phone] [facility] [place] Referral Appointment Requested Referral: Zac Vee [facility] [place] Referral Appointment Requested Referral: Alli Newsome Referral Appointment Re quested Instructions Comment CT abd/pelvis - WARF form for andrew [facility] has been Submitted successfully with AuthID : [id number] . RLQ pain- diarrhea- recommend CT scan to r/o appendicitis - request submitted to [facility] for prior approval - instructed patient to [...]
--- OUTSIDE RECORDS SUMMARY | 2021-09-20 11:07 | XMS REPORT | CCD ---
Author Author Blas Jackson Organization Denise Rose MD, JESSICA Address [address] [place] [address] Phone Care Team Providers Care Framing And Hanging Name Role Phone Denise Rose PP Unavailable CCM Unavailable Summary Purpose Interface Exchange Insurance Providers Payer name Policy type / Coverage type Covered libertarian ID Effective Begin Date Effective End Date [facility] [id number] Unknown Family history Runs in the family Diagnosis Age At Onset No Family Disease Entered N/A Social History Social History Element Codes Description Effective Dates Marital status Unknown Single Engaged to [employer] 11/30/2017 Number of children Unknown 2 5 year old girl and 3 year old boy 11/30/2017 Employment Unknown Currently employed [employer] 11/30/[address]: 036812585 Never smoker 11/30/[address]: 672140140 Never drinks alcohol 2017 Allergies, Adverse Reactions, [...] Start Date Stop Date Status Fill Instructions metronidazole 500 mg tablet RxNorm: 243128 Take 1 Table t(s) Oral three times a day 08/15/2021 08/24/2021 Active metronidazole 500 mg tablet RxNorm: 811483 Take 1 Table t(s) Oral three times a day 08/15/2021 08/24/2021 Active Cipro 500 mg tablet RxNorm: 125462 Take 1 Tablet(s) Oral two ti mes a day 08/15/2021 08/24/2021 Active Cipro 500 mg tablet RxNorm: 797943 Take 1 Tablet(s) Oral two ti mes a day 08/15/2021 08/15/2021 Inactive metronidazole 500 mg tablet RxNorm: 197913 Take 1 Table t(s) Oral three times a day 08/15/2021 08/15/2021 Inactive Protonix 40 mg tablet,delayed release RxNorm: 326617 1 Tablet(s ) Oral every day 02/01/2021 03/02/2021 Inactive Dexilant 60 mg capsule, delayed release RxNorm: 663750 1 Capsule(s) Oral every day 02/01/2021 02/01/2021 Inactive prednisone 20 mg tablet RxNorm: 146067 1 Tablet(s) Oral two celestino es a day 02/01/2021 02/06/2021 Inactive Protonix 40 mg tablet,delayed release RxNorm: 168855 1 Tablet(s ) Oral every day 02/01/2021 01/31/2021 Inactive naproxen 500 mg tablet RxNorm: 767882 1 Tablet(s) Oral two time s a day 05/17/2020 06/06/2020 Inactive Dexilant 60 mg capsule, delayed release RxNorm: 206676 1 Capsul e(s) PO daily 06/17/2018 04/03/2019 Inactive valacyclovir 1 gram tablet RxNorm: 362986 1 Tablet(s) PO TID 201706/23/2018 Inactive prednisone 20 mg tablet RxNorm: 327323 2 Tablet(s) PO daily 018 06/19/2018 Inactive Carafate 1 gram tablet RxNorm: 842107 1 Tablet(s) PO QID 11/30/2017 0 12/27/2017 Inactive dissolve in water and drink as slurry Men's Multivitamin oral RxNorm: 77049 oral 11/30/2017 A ctive Medication Administered No Medication Administered data Immunizations Vaccine Codes Dose Date Status Influenza CVX: 150 0.5 06/26/2021 Complete Influenza CVX: 150 0.5 07/20/2020 Complete Influenza CVX: 150 0.5 07/07/2019 Complete Influenza CVX: 135 08/27/2018 Tetanus, Diptheria, Pertussis CVX: 08/14/2017 Tetanus/Diptheria CVX: 08/14/2017 Influenza CVX: 135 06/14/2017 Results No Results data Procedures Procedure Codes Date IIV4 VACC NO PRSV 0.5 ML IM CPT-4: 15986 06/26/2021 IMMUNIZATION ADMIN CPT-4: 64098 06/26/2021 IIV4 VACC NO PRSV 0.5 ML IM CPT-4: 17611 06/26/2021 IIV4 VACC NO PRSV 0.5 ML IM CPT-4: 39211 07/20/2020 IMMUNIZATION ADMIN CPT-4: 05330 07/20/2020 IIV4 VACC NO PRSV 0.5 ML IM CPT-4: 78423 07/20/2020 IIV4 VACC NO PRSV 0.5 ML IM CPT-4: 29101 07/07/2019 IMMUNIZATION ADMIN CPT-4: 99902 07/07/2019 IIV4 VACC NO PRSV 0.5 ML IM CPT-4: 30357 07/07/2019 Vital Signs Date Vital 08/13/2021 Blood Pressure 1: 124/86 Code: 8480-6 BMI: 27.2 Code: 45266-6 Heart Rate 1: 68 bpm Height: 5'8" Code: 8302-2 SpO2: 99% Temperature: 3 5.9 (C) / 96.6 (F) Weight: 179 lbs Code: 06647-8 02/01/2021 Blood Pressure 1: 130/84 Code: 8480-6 Heart Rate 1: 60 bpm Height: Code: 8302-2 SpO2: 98% Weight: Code: 54516-9 05/17/2020 Blood Pressure 1: 122/80 Code: 8480-6 Heart Rate 1: 76 bpm Height: 5'8" Code: 8302-2 SpO2: 97% Temperature: 36.8 (C) / 98.2 (F) Weight: Code: 83969-6 04/04/2019 Blood Pressure 1: 132/70 Code: 8480-6 BMI: 25.8 Code: 65364-5 Heart Rate 1: 66 bpm Height: 5'8" Code: 8302-2 SpO2: 98% Weight: 170 lb s Code: 82426-8 06/17/2018 Blood Pressure 1: 130/76 Code: 8480-6 BMI: 26.6 Code: 88878-5 Heart Rate 1: 71 bpm Height: 5'8" Code: 8302-2 SpO2: 99% Weight: 175 lb s Code: 08196-4 11/30/2017 Blood Pressure 1: 118/68 Code: 8480-6 BMI: 26.0 Code: 74601-8 Heart Rate 1: 80 bpm Height: 5'8" Code: 8302-2 SpO2: 98% Weight: 171 lb s Code: 52088-6 Functional Status No Functional Status data Reason For Visit Reason For Visit Effective Dates Notes abdominal pain 08/13/2021 vaccination against influenza 06/26/2021 wrist pain 02/01/2021 vaccination against influenza 07/20/2020 wrist pain 05/17/2020 vaccination against influenza 07/07/2019 lower leg pain 04/04/2019 sore throat 06/17/2018 dyspepsia 11/30/2017 Encounters Encounter Performer Location Codes Date EST. PATIENT, LEVEL III Diagnosis: RLQ abdominal pain[ICD10: R10.31] Diagnosis: Diarrhea[ICD10: R19.7] Buffy Rose MD, [facility] CPT -4: 50743 08/13/[id number]) [id number] EST. PATIENT, LEVEL III Diagnosis: GERD (gastroesophageal reflux disease)[ICD10: K21.9] Diagnosis: Left wrist pain[ICD10: M25.532] [facility] CPT-[facility]: 09790 02/01/2021 92309 EST. PATIENT, LEVEL III Diagnosis: Left wrist pain[ICD10: M25.532] Buffy ward MD, [facility] CPT-4: 15400 05/17/2020 ([id number]) 07222 EST. PATIENT, LEVEL III Diagnosis: Gastro-esophageal reflux disease without esophagitis[ICD10: K21.9] Diagnosis: Pain in right knee[ICD10: M25.561] [facility] CPT-4: 31547 04/04/2019 09969 EST. PATIENT, LEVEL IV Diagnosis: Gastro-esophageal reflux disease without esophagitis[ICD10: K21.9] Diagnosis: Other lesions of oral mucosa[ICD10: K13.79] Heena Rose MD, [facility] CPT-4: 63248 06/17/2018 OFFICE VISIT, NEW - LEVEL 3 Diagnosis: Pain in right knee[ICD10: M25.561] Diagnosis: Gastro-esophageal reflux disease without esophagitis[ICD10: K21.9] Buffy Rose MD, [facility] CPT-4: 87519 11/30/2017 Plan of Care Planned Activity Notes Codes Status Date Visit Plan: RLQ pain- diarrhea- recommen d CT scan to r/o appendicitis - request submitted to [facility] for prior approval - instructed patient to go to ER for worsening pain -patient verbalized understanding of plan. 08/13/2021 Appointment: Buffy Jackson WPtel: [phone] (15 min) Moderate 08/13/2021 Patient [...] wrist brace 02/01/2021 [facility] [phone] [phone] (15 min) Moderate 02/01/2021 Patient Education: Patient Medication Summary Completed 02/01/2021 Appointment: Buffy Jackson WPtel: [facility] [place] [phone] (15 min) Moderate 01/31/2021 Appointment: Injection 07/20/2020 Patient Education: Patient Medication Summary Completed 07/20/2020 Visit Plan: Left wrist pain -recommend r est, ice and anti inflammatories recommend wrist brace to wear at least at night while sleeping - call if pain does not resolve and we will refer to hand specialist - patient verbalized understanding of plan. 05/17/2020 Appointment: Buffy Jackson WPtel: [facility] [place] [phone] (30 min) Complex 05/17/2020 Patient Education: Patient Medication Summary Completed 05/17/2020 Appointment: Injection 07/07/2019 Patient Education: Patient Medication Summary Completed 07/07/2019 [phone] Referral Completed 2019 Visit Plan: Esophageal [...] for clearance. 04/04/2019 Appointment: Buffy Jackson WPtel: [address] [place], [place] [phone] [place] (15 min) Moderate 04/04/2019 Patient Education: Patient Medication Summary Completed 04/04/2019 Care Plan: Referral Order SNOMED-CT : 30 5006299 Pending 04/04/2019 Appointment: Heena Bucio WPtel: [address] [place], [place] [address] (15 min) Moderate 06/17/2018 Patient Education: Patient [...] improving. 11/30/2017 [facility]ment: [facility] [phone] [phone] New Patient 11/30/2017 Patient Education: Patient Medication Summary Completed 11/30/2017 Care Plan: Referral Order SNOMED-CT : 30 7607565 Pending 11/30/2017 Referral: Panfilo Guerrero HPtel:[phone] [facility] [place] Referral Appointment Requested Referral: Zac Vee [facility] [place] Referral Appointment Requested Referral: Alli Newsome Referral Appointment Re quested Instructions Comment Date CT abd/pelvis - [facility] [employer]en[employer]Form has been Submitted successfully with AuthID : [id number] . RLQ pain- diarrhea- recommend CT scan to r/o appendicitis - request submitted to [facility] for prior approval - instructed patient to go to ER for worsening pain -patient verbalized understanding of plan. 08/13/2021 . Esophageal Reflux - the patient has [...] evaluation - continue with wrist brace 02/01/2021 . Left wrist pain -recommend rest, ice a nd anti inflammatories recommend wrist brace to wear at least at night while sleeping - call if pain does not resolve and we will refer to hand specialist - patient verbalized understanding of plan. 05/17/[address] GUERRERO FOR EGD . Esophageal [...] avoid running- paperwork completed for clearance. 04/04/2019 . Right knee pain-trauma to right leg [...] if the symptoms are not improving. 11/30/2017 Medical Equipment No Medical Equipment data Health Concerns Section Health Concerns data not found Goals Section Goals data not found Interventions Section Interventions data not found Health Status Evaluations/Outcomes Section Health Status Evaluations/Outcomes data not found Advance Directives No Advance Directive data
--- OUTSIDE RECORDS SUMMARY | 2021-09-20 11:07 | XMS REPORT | CCD ---
Author Author Blas Jackson Organization Denise Rose MD, JESSICA Address [address] [place] [address] Phone Care Team Providers Care Stump Shooter Name Role Phone Denise Rose PP Unavailable CCM Unavailable Summary Purpose Interface Exchange Insurance Providers Payer name Policy type / Coverage type Covered democrat ID Effective Begin Date Effective End Date [facility] [id number] Unknown Family history Runs in the family Diagnosis Age At Onset No Family Disease Entered N/A Social History Social History Element Codes Description Effective Dates Marital status Unknown Single Engaged to [employer] 11/30/2017 Number of children Unknown 2 5 year old girl and 3 year old boy 11/30/2017 Employment Unknown Currently employed [employer] 11/30/[address]: 748865749 Never smoker 11/30/[address]: 474407549 Never drinks alcohol 2017 Allergies, Adverse Reactions, [...] Start Date Stop Date Status Fill Instructions Protonix 40 mg tablet,delayed release RxNorm: 393358 1 Tablet(s ) Oral every day 02/01/2021 03/02/2021 Inactive Dexilant 60 mg capsule, delayed release RxNorm: 369404 1 Capsule(s) Oral every day 02/01/2021 02/01/2021 Inactive prednisone 20 mg tablet RxNorm: 190942 1 Tablet(s) Oral two celestino es a day 02/01/2021 02/06/2021 Inactive Protonix 40 mg tablet,delayed release RxNorm: 570475 1 Tablet(s ) Oral every day 02/01/2021 01/31/2021 Inactive naproxen 500 mg tablet RxNorm: 732942 1 Tablet(s) Oral two time s a day 05/17/2020 06/06/2020 Inactive Dexilant 60 mg capsule, delayed release RxNorm: 081458 1 Capsul e(s) PO daily 06/17/2018 04/03/2019 Inactive valacyclovir 1 gram tablet RxNorm: 811348 1 Tablet(s) PO TID 201706/23/2018 Inactive prednisone 20 mg tablet RxNorm: 736209 2 Tablet(s) PO daily 018 06/19/2018 Inactive Carafate 1 gram tablet RxNorm: 502135 1 Tablet(s) PO QID 11/30/2017 0 12/27/2017 Inactive dissolve in water and drink as slurry Men's Multivitamin oral RxNorm: 67012 oral 11/30/2017 A ctive Medication Administered No Medication Administered data Immunizations Vaccine Codes Date Status Influenza CVX: 150 06/26/2021 Complete Influenza CVX: 150 07/20/2020 Complete Influenza CVX: 150 07/07/2019 Complete Influenza CVX: 135 08/27/2018 Tetanus, Diptheria, Pertussis CVX: 08/14/2017 Tetanus/Diptheria CVX: 08/14/2017 Influenza CVX: 135 06/14/2017 Results No Results data Procedures Procedure Codes Date IIV4 VACC NO PRSV 0.5 ML IM CPT-4: 25051 06/26/2021 IMMUNIZATION ADMIN CPT-4: 04220 06/26/2021 IIV4 VACC NO PRSV 0.5 ML IM CPT-4: 82235 06/26/2021 IIV4 VACC NO PRSV 0.5 ML IM CPT-4: 98363 07/20/2020 IMMUNIZATION ADMIN CPT-4: 76368 07/20/2020 IIV4 VACC NO PRSV 0.5 ML IM CPT-4: 04648 07/20/2020 IIV4 VACC NO PRSV 0.5 ML IM CPT-4: 71432 07/07/2019 IMMUNIZATION ADMIN CPT-4: 26347 07/07/2019 IIV4 VACC NO PRSV 0.5 ML IM CPT-4: 67806 07/07/2019 Vital Signs Date Vital 08/13/2021 Blood Pressure 1: 124/86 Code: 8480-6 BMI: 27.2 Code: 38970-6 Heart Rate 1: 68 bpm Height: 5'8" Code: 8302-2 SpO2: 99% Temperature: 3 5.9 (C) / 96.6 (F) Weight: 179 lbs Code: 00436-9 02/01/2021 Blood Pressure 1: 130/84 Code: 8480-6 Heart Rate 1: 60 bpm Height: Code: 8302-2 SpO2: 98% Weight: Code: 57954-1 05/17/2020 Blood Pressure 1: 122/80 Code: 8480-6 Heart Rate 1: 76 bpm Height: 5'8" Code: 8302-2 SpO2: 97% Temperature: 36.8 (C) / 98.2 (F) Weight: Code: 05411-6 04/04/2019 Blood Pressure 1: 132/70 Code: 8480-6 BMI: 25.8 Code: 10507-0 Heart Rate 1: 66 bpm Height: 5'8" Code: 8302-2 SpO2: 98% Weight: 170 lb s Code: 09401-5 06/17/2018 Blood Pressure 1: 130/76 Code: 8480-6 BMI: 26.6 Code: 46899-5 Heart Rate 1: 71 bpm Height: 5'8" Code: 8302-2 SpO2: 99% Weight: 175 lb s Code: 59820-1 11/30/2017 Blood Pressure 1: 118/68 Code: 8480-6 BMI: 26.0 Code: 05229-5 Heart Rate 1: 80 bpm Height: 5'8" Code: 8302-2 SpO2: 98% Weight: 171 lb s Code: 83958-4 Functional Status No Functional Status data Reason For Visit Reason For Visit Effective Dates Notes abdominal pain 08/13/2021 vaccination against influenza 06/26/2021 wrist pain 02/01/2021 vaccination against influenza 07/20/2020 wrist pain 05/17/2020 vaccination against influenza 07/07/2019 lower leg pain 04/04/2019 sore throat 06/17/2018 dyspepsia 11/30/2017 Encounters Encounter Performer Location Codes Date ([id number]) 62650 EST. PATIENT, LEVEL III Diagnosis: RLQ abdominal pain[ICD10: R10.31] Diagnosis: Diarrhea[ICD10: R19.7] Buffy Rose MD, [facility] CPT -4: 73347 08/13/2021 ([id number]) 45556 EST. PATIENT, LEVEL III Diagnosis: GERD (gastroesophageal reflux disease)[ICD10: K21.9] Diagnosis: Left wrist pain[ICD10: M25.532] Buffy ward MD, [facility] CPT-4: 35679 02/01/2021 97521 EST. PATIENT, LEVEL III Diagnosis: Left wrist pain[ICD10: M25.532] Buffy ward MD, [facility] CPT-4: 57509 05/17/2020 ([id number]) 95608 EST. PATIENT, LEVEL III Diagnosis: Gastro-esophageal reflux disease without esophagitis[ICD10: K21.9] Diagnosis: Pain in right knee[ICD10: M25.561] Buffy hernandez MD, [facility] CPT-4: 59238 04/04/2019 17461 EST. PATIENT, LEVEL IV Diagnosis: Gastro-esophageal reflux disease without esophagitis[ICD10: K21.9] Diagnosis: Other lesions of oral mucosa[ICD10: K13.79] Heena Rose MD, [facility] CPT-4: 00627 06/17/2018 OFFICE VISIT, NEW - LEVEL 3 Diagnosis: Pain in right knee[ICD10: M25.561] Diagnosis: Gastro-esophageal reflux disease without esophagitis[ICD10: K21.9] [facility] CPT-4: 77748 11/30/2017 Plan of Care Planned Activity Notes Codes Status Date Visit Plan: RLQ pain- diarrhea- recommen d CT scan to r/o appendicitis - request submitted to [facility] [employer] for prior approval - instructed patient to go to ER for worsening pain -patient verbalized understanding of plan. 08/13/2021 Patient Education: Patient Medication Summary Completed [...] wrist brace 02/01/2021 Appointment: Buffy Jackson WPtel: [address] [place] [address] (15 min) Moderate 02/01/2021 Patient Education: Patient Medication Summary Completed 02/01/2021 Appointment: Buffy Jackson WPtel: [address] [place] [address] (15 min) Moderate 01/31/2021 Appointment: Injection 07/20/2020 Patient Education: Patient Medication Summary Completed 07/20/2020 Visit Plan: Left wrist pain -recommend r est, ice and anti inflammatories recommend wrist brace to wear at least at night while sleeping - call if pain does not resolve and we will refer to hand specialist - patient verbalized understanding of plan. 05/17/2020 Appointment: Buffy Jackson WPtel: [facility] [place] [phone] (30 min) Complex 05/17/2020 Patient Education: Patient Medication Summary Completed 05/17/2020 Appointment: Injection 07/07/2019 Patient Education: Patient Medication Summary Completed 07/07/2019 Referral: Panfilo Guerrero HPtel:[phone] Referral Completed 2019 Visit Plan: Esophageal [...] for clearance. 04/04/2019 Appointment: Buffy Jackson WPtel: [phone] (15 min) Moderate 04/04/2019 Patient Education: Patient Medication Summary Completed 04/04/2019 Care Plan: Referral Order SNOMED-CT : 30 5657945 Pending 04/04/2019 Appointment: Heena Bucio WPtel: [facility] (15 min) Moderate 06/17/2018 Patient Education: Patient Medication Summary Completed 06/17/2018 Care Plan: Comp Metabolic Pending Care Plan: Cbc With Differential Pending 06/17/2018 Care Plan: Tsh Pending 06/17/2018 Visit Plan: Right knee pain-trauma to ri t leg in August -lower leg is healing [...] the symptoms are not improving. 11/30/2017 Appointment: Bfufy Jackson WPtel: [phone] [place] New Patient 11/30/2017 Patient Education: Patient Medication Summary Completed 11/30/2017 Care Plan: Referral Order SNOMED-CT : 30 6758930 Pending 11/30/2017 Referral: Panfilo Guerrero HPtel:[phone] [facility] [place] Referral Appointment Requested Referral: Zac Vee [facility] [place] Referral Appointment Requested Referral: Alli Newsome Referral Appointment Re quested Instructions Comment CT abd/pelvis - [employer] form for regino Bryant has been Submitted successfully with AuthID : [id number] . RLQ pain- diarrhea- recommend CT scan to r/o appendicitis - request submitted to [employer] [employer] for prior approval - instructed patient to [...]
[2021-09-20 11:25] VITALS: BP 132/77
[2021-09-20] MEDS ORDERED: LACTATED RINGERS 1,000 ML IV ONE (11:25)
[2021-09-20] MEDS ORDERED: LACTATED RINGERS 1,000 ML IV STA (11:29)
[2021-09-20] MEDS ORDERED: LIDOCAINE JELLY 2% 6 ML SYRINGE MM PRN (11:30)
[2021-09-20] MEDS ORDERED: HURRICAINE EXT TUBE (BENZOCAINE) XX PRN (11:30)
[2021-09-20] MEDS ORDERED: PROPOFOL INJECTION 50 ML IV ONE (11:53)
[2021-09-20] MEDS ORDERED: MIDAZOLAM 2 MG/2 ML (VERSED) VIAL ONE (11:53)
--- NOTE | 2021-09-20 11:55 | Progress Note-Pre Operative ---
Pre-Operative Progress Note H&P Reviewed The H&P was reviewed, patient examined and no changes noted. Date Seen by Provider: Sep 20, 2021 Time Seen by Provider: 11:30 Date H&P Reviewed: Sep 20, 2021 Time H&P Reviewed: 11:30 Pre-Operative Diagnosis: GERD, hx diverticulitis ROXANA SUERO MD Sep 20, 2021 11:54
[2021-09-20] MEDS ORDERED: PANT40TA2 PO (11:56)
--- NOTE | 2021-09-20 11:57 | Discharge Inst-Surgical ---
D/C Lap Instructions-KIDO New, Converted, or Re-Newed RX: RX on Chart Follow Up Activity as tolerated High Fiber Diet 25g or more per day Avoid Alcohol, Caffeine, Spicy [place] and Acid foods. Drink 64 fluid oz or more of fluids per day. Symptoms to Report: Fever over 101 degree F, Nausea/Vomiting If any problems/questions: Contact your physician or go to Emergency Room ROXANA SUERO MD Sep 20, 2021 11:57
[2021-09-20] MEDS ORDERED: ONDANSETRON 4 MG/2 ML (SDV) Z0FRAN IVP PRN ×2 (12:00)
[2021-09-20] MEDS ORDERED: ONDANSETRON 4 MG (ZOFRAN) ORAL DISSOLVE TAB PO PRN ×2 (12:00)
[2021-09-20 12:25] VITALS: BP 89/57
[2021-09-20 12:30] VITALS: BP 88/56
--- NOTE | 2021-09-20 12:32 | Progress Note-Post Operative ---
Post-Operative Progess Note Surgeon (s)/Contact Centre Supervisor (s) Surgeon ROXANA SUERO MD Contact Centre Supervisor: none Pre-Operative Diagnosis GERD, hx diverticulitis Post-Operative Diagnosis reflux esophagitis(grade 2-3), small-moderate HH(2.5cm), mild gastritis. mild chronic stage 1 ext and int hemorrhoids, moderate sigmoid diverticulosis. Procedure & Operative Findings Date of Procedure 09/20/21 Procedure Performed/Findings EGD with bx. colonoscopy. Anesthesia Type mac Estimated Blood Loss Estimated blood loss (mL): minimal Specimens/Packing Specimens Removed ge jxn, antrum. ROXANA SUERO MD Sep 20, 2021 12:32
[2021-09-20 12:35] VITALS: BP 89/61
[2021-09-20 13:05] VITALS: BP 103/69
--- NOTE | 2021-09-20 13:16 | Anesthesia-General Post-Op ---
MAC Patient Condition Mental Status/LOC: Same as Preop Cardiovascular: Satisfactory Nausea/Vomiting: Absent Respiratory: Satisfactory Pain: Controlled Complications: Absent Post Op Complications Complications None Follow Up Care/Instructions Patient Instructions None needed. Anesthesiology Discharge Order Discharge Order Patient was doing well after the procedure with no complaints, stable vital signs, no apparent adverse anesthesia problems. CYNTHIA HAWKINS DO Sep 20, 2021 13:16
--- NOTE | 2021-09-20 19:01 | OPERATIVE REPORT ---
DATE OF SERVICE: 09/20/2021 ATTENDING PRIMARY CARE PHYSICIAN: Denise Rose MD PREOPERATIVE DIAGNOSES: Gastroesophageal reflux disease, history of diverticulitis. POSTOPERATIVE DIAGNOSES: Reflux esophagitis between [place] grade B and C, small to moderate size hiatal hernia approximately 2 to 2.5 cm in size, mild gastritis. No distal obstructions. Mild chronic stage I external and internal hemorrhoids, moderate sigmoid diverticulosis. PROCEDURE: EGD with biopsy, colonoscopy. SURGEON: Roxana Suero MD. ANESTHESIA: Monitored anesthesia care. ESTIMATED BLOOD LOSS: Minimal. FINDINGS: Same as postoperative diagnoses. DISPOSITION: The patient tolerated the procedure well. INDICATIONS: The patient is a 31-year-old male who has had an issue with gastroesophageal reflux disease for several years and did undergo an EGD approximately 3 years ago and states that he was found to have a hiatal hernia. He also underwent a laparoscopic cholecystectomy soon after that time. He did develop pain in the left lower abdominal quadrant and underwent a CT scan and was found to have sigmoid diverticulitis. He reports that his reflux symptoms have continued and worsened over time as well. DESCRIPTION OF PROCEDURE: The patient was brought to the endoscopy suite, laid in the left lateral decubitus position. After adequate IV pain and sedative medications and monitored anesthesia care, the mouthpiece was applied. The endoscope was placed in the mouth, visualizing the pharynx and hypopharyngeal region. Vocal cords, epiglottis and vallecula identified and appeared to be normal. The endoscope was then gently intubated. esophageal opening and esophagus insufflated. The endoscope was then advanced through the first, second and third portion of the esophagus at the level of GE junction, a reflux esophagitis between [place] grade B and C was identified. A biopsy was taken with forceps with visualization of good hemostasis. The endoscope was then advanced in the stomach and endoscope retroflexed, visualizing a small to moderate what appeared to be type 1 hiatal hernia approximately 2 to 2.5 cm in size. There was a mild gastritis, no ulcerations, polyps, or any neoplasms. The endoscope was then advanced to the pylorus and first and second portions of the duodenum, which appeared normal with no distal obstructions. The endoscope was then slowly withdrawn while taking a second look and suctioning of residual air with no additional findings. A digital rectal examination was performed, which revealed mild chronic stage I external and internal hemorrhoids. Prostate gland was palpable and appeared normal. The endoscope was then intubated into the anus and rectum was gently insufflated. The endoscope was then advanced through the valves of [place] of the rectum with no polyps or any neoplasms identified. Through the sigmoid colon, moderate sigmoid diverticulosis identified. There were no mucosal inflammatory changes to indicate any active diverticulitis. The endoscope was then advanced to the remainder of the descending, transverse and ascending colon to the cecum, which were normal. There were no mucosal inflammatory changes. The endoscope was then slowly withdrawn while taking a second look and suctioning of residual air with no additional findings. The patient tolerated the procedure well. We will start him back on Protonix 40 mg daily as well as the necessary lifestyle and dietary accommodation including small and more frequent meals, avoidance of eating at night as well as head elevation while lying supine. We also will recommend avoidance of caffeinated beverages, spicy, greasy and acidic foods. If his symptoms worsen despite maximal medical therapy, he might be a candidate for hiatal hernia repair; however, we will proceed with an esophageal manometry study to rule out an esophageal dysmotility beforehand. We will also recommend a high fiber diet with incorporation of a fiber supplement, which should equal or exceed 30 grams daily as well as significant amounts of water to promote soft stools on a daily basis. If he is asymptomatic, he does not need another colonoscopy for another 10 years. Job ID: [id number] DocumentID: [id number] Dictated Date: 09/20/2021 12:41:45 Artificial Limb Fitter Date: 09/20/2021 17:27:50 Dictated By: ROXANA SUERO MD
== END 2021-09-20 13:05 | disposition home or self-care (01) ==
LOC: ENDO 11:04
PROVIDERS: ATTEND Surgery
DX: K21.00 Gastro-esophageal reflux disease with esophagitis, without bleeding (principal); K29.50 Unspecified chronic gastritis without bleeding; K44.9 Diaphragmatic hernia without obstruction or gangrene; K64.0 First degree hemorrhoids; K64.4 Residual hemorrhoidal skin tags; K57.30 Diverticulosis of large intestine without perforation or abscess without bleeding; Z90.89 Acquired absence of other organs; Z98.52 Vasectomy status; Z80.3 Family history of malignant neoplasm of breast